=== PATIENT | male | born 1970 | race Caucasian/White ===

== ENCOUNTER 2018-05-12 19:27 | Emergency (ER) | payer BC ==
[~2018-05-12] VITALS: Ht 167.6 cm; Wt 88.9 kg
--- NOTE | 2018-05-12 19:33 | NUR ---
PATIENT BROUGHT IN BY RESCUE FROM [facility]. PER REPORT FROM RESCUE PATIENT HAD RIGHT SIDE FACIAL DROOP WITH RIGHT HAND WEAKNESS. PATIENT UPON ARRIVAL WITH GOOD EQUAL STRENGHT ON BILATERAL UPPER EXTREMITY AND LOWER EXTREMITY. WHEN PATIENT WAS ASKED WHAT WAS HIS NAME PATIENT RESPONSE WAS SLOW. WHEN PATIENT WAS ASKED ABOUT THE YEAR PATIENT STATES "I CAN SEE THE DATE BUT I CAN'T SAY IT."
[2018-05-12 19:39] LABS: BASOPHILS % (AUTO) 0.3 % (0.0-2.0); EOSINOPHILS # (AUTO) 0.1 K/uL (0.0-0.7); EOSINOPHILS % (AUTO) 1.2 % (0.0-7.0); HEMATOCRIT 45.6 % (36.7-47.1); HEMOGLOBIN 15.6 g/dL (12.5-16.3); LYMPHOCYTES # (AUTO) 2.5 K/uL (20.0-40.0); LYMPHOCYTES % (AUTO) 40.7 % (20.5-51.5); MEAN CORPUSCULAR HEMOGLOBIN 30.1 uug (23.8-33.4); MEAN CORPUSCULAR HGB CONC 34 g/dL (32.5-36.3); MEAN CORPUSCULAR VOLUME 87.7 fL (73.0-96.2); MONOCYTES # (AUTO) 0.6 K/uL (2.0-10.0); NEUTROPHILS % (AUTO) 48.8 % (38.5-71.5); PLATELET COUNT (AUTO) 232 K/uL (152-348); WHITE BLOOD COUNT (AUTO) 6.1 K/uL (3.6-10.2)
--- NOTE | 2018-05-12 19:43 | NUR ---
PT RETURNS FROM CT IN [facility] WITH TRANSPORTER
[2018-05-12 19:47] LABS: CREATININE 1.3 mg/dL (0.6-1.3); POTASSIUM 3.8 mmol/L (3.5-5.1)
--- NOTE | 2018-05-12 19:48 | NUR ---
PT EVALUATED BY TELESTROKE MD
--- NOTE | 2018-05-12 20:09 | NUR ---
TPA BOLUS GIVEN
--- NOTE | 2018-05-12 20:11 | NUR ---
TPA DRIP BEGINS...SET TO INFUSE OVER 1 HR
[2018-05-12] MEDS ORDERED: ALTEPLASE 100 MG VIAL IV ONE (20:15)
[2018-05-12] MEDS ORDERED: NORMAL SALINE FLUSH 10 ML DISP.SYRIN ONE (20:22)
[2018-05-12] MEDS ORDERED: IOHEXOL 350 100 ML INFUS..BTL ONE (20:22)
[2018-05-12] MEDS ORDERED: IV NORMAL SALINE 100 ML ONE (20:22)
[2018-05-12] MEDS ORDERED: SWABABLE VALVE TRANSFER SET EA MC ONE (20:22)
--- NOTE | 2018-05-12 20:30 | NUR ---
PT IN ROUTE TO CT IN [facility] WITH TRANSPORTER AND ZA SOLANO.
--- NOTE | 2018-05-12 20:30 | NUR ---
PATIENT OUT OF UNIT VIA GURNY FOR CTA
--- NOTE | 2018-05-12 20:43 | NUR ---
Patient back from cta with no distress noted
--- NOTE | 2018-05-12 21:11 | NUR ---
TPA ENDS...PT IS CALM AND COOPERATIVE. NO SIGNS OF ACUTE DISTRESS WITNESSED AT THIS TIME.
[2018-05-12] MEDS ORDERED: BUPR-96 PO (21:53)
[2018-05-12] MEDS ORDERED: ROSU20TA PO (21:53)
[2018-05-12] MEDS ORDERED: FINA5TAB11 PO (21:53)
--- NOTE | 2018-05-12 22:01 | NUR ---
CCT TRANSPORT FROM [facility] HAS ARRIVED
--- NOTE | 2018-05-12 22:15 | NUR ---
REPORT GIVEN TO Danielle LEYVA NURSENOE RN
--- NOTE | 2018-05-12 22:25 | NUR ---
PT IN ROUTE TO [facility] WITH CCT NURSE, ZA [place]
== END 2018-05-12 22:25 | disposition short-term general hospital (02) ==
LOC: ER 19:29
DX: I63.9 Cerebral infarction, unspecified (principal); E78.5 Hyperlipidemia, unspecified; F12.10 Cannabis abuse, uncomplicated; Z79.899 Other long term (current) drug therapy
CPT/HCPCS: 36415; 70030-TC; 70450; 70496; 71045; 85025; 85730; 93005; A4663; J2997; J3490; Q9967